=== PATIENT | male | born 1970 | race Caucasian/White ===

== ENCOUNTER 2016-10-17 01:41 | Emergency (ER) | payer BC ==
--- NOTE | 2016-10-17 01:44 | EDM.PDOC ---
ED HPI GENERAL MEDICAL PROBLEM - General Chief Complaint: Abdominal Pain Stated Complaint: ABDOMINAL PAIN Time Seen by Provider: 10/17/16 01:47 Source of Information: Reports: Patient History Limitations: Reports: No Limitations - History of Present Illness INITIAL COMMENTS - FREE TEXT/NARRATIVE: 46 years old w m in prev healthy condition came to the ed by PC due to acute onset of mid abdominal pain after he ate a hamburger at [facility]. No trauma, pt was severe ly nauseated, did not vomit. Puls was 45 BP was 124/67. no chest pain, no dizziness. pt was pale and diaphoretic on arrival, however. 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: Other (see below) (none) Bilateral Lower Abdominal Pain Score (Numeric/FACES): 8 - Related Data Allergies Allergy/AdvReac Type Severity Reaction Status Date / Time No Known Allergies Allergy Verified 10/17/16 01:51 Home Meds: Home Meds NK [No Known Home Meds] 10/17/16 [History] ED ROS GENERAL - Review of Systems Review Of Systems: See Below Constitutional: Reports: Diaphoresis HEENT: Reports: No Symptoms Respiratory: Reports: No Symptoms Cardiovascular: Reports: Lightheadedness Endocrine: Reports: No Symptoms GI/Abdominal: Reports: Abdominal Pain : Reports: No Symptoms Musculoskeletal: Reports: No Symptoms Skin: Reports: No Symptoms Neurological: Reports: No Symptoms Psychiatric: Reports: No Symptoms Hematologic/Lymphatic: Reports: No Symptoms Immunologic: Reports: No Symptoms ED EXAM, GI/ABD - Physical Exam Exam: See Below Exam Limited By: Other (severe abd. pain with nausea) General Appearance: Alert, WD/WN, Moderate Distress, Obese Eyes: Bilateral: Normal Appearance Ears: Normal External Exam Nose: Normal Inspection, Normal Mucosa Throat/Mouth: Normal Inspection, Normal Lips Head: Atraumatic, Normocephalic Neck: Normal Inspection, Supple, Non-Tender, Full Range of Motion Respiratory/Chest: No Respiratory Distress, Lungs Clear, Chest Non-Tender Cardiovascular: Bradycardia (rate 39) GI/Abdominal: Hypoactive Bowel Sounds, Tenderness, Guarding (Male) Exam: No Hernia, Normal Inspection Rectal (Males) Exam: Deferred Back Exam: Normal Inspection, Full Range of Motion Extremities: Normal Inspection, Normal Range of Motion, Non-Tender, No Pedal Edema Neurological: Alert, Oriented, CN II-XII Intact, Normal Cognition, Normal Gait Psychiatric: Normal Affect, Normal Mood Skin Exam: Warm, Dry, Intact, Pallor Lymphatic: No Adenopathy EKG INTERPRETATION EKG Date: 10/17/16 Time: 03:30 Rhythm: NSR Rate (beats/min): 34 [place]: normal P-wave: present QRS: normal ST-T: normal QT: normal Comparison: NA - no prior EKG EKG Interpretation Comments: Repeat ECH at 6.27 am showed Bradycardia with a rate of 49 bpm Course - Vital Signs Text/Narrative:: 46 years old w m in prev healthy condition came to the ed by PC due to acute onset of mid abdominal pain after he ate a hamburger at [facility]. No trauma, pt was severe ly nauseated, did not vomit. Puls was 45 BP was 124/67. no chest pain, no dizziness. pt was pale and diaphoretic on arrival, however. denied fatty food intake. Denied GBD. PE: Gen abdominal pain, more so epigastric, Bradycardia Imaging: Abd flat and upright Neg. CT abd. showed a nodule 4 mm right middle lobe of lung. Labs: CBC, BMP, Troponin and TSH were neg, Drug screen was pos for opiates, Urine was collected after he received Dilaudid, UA was neg Impression: possible gastritis, food related, Bradycardia. Tx: Dilaudid, Zofran, NS 1000, NTG patch, observed for 6 hours on manager cardiac Reexam: Bradycardia 49 BPM in am, not symptomatic, walks, talks, feels in his usual state of health. His arrived, last physical was 15 yeasr ago Consultation: Dr. Hernandez, Cariologist, [place]: Does not think it is heart related, would recommend Holter monitor set up, however. Plan: D/C with instructions Last Recorded V/S: Last Vital Signs Temp 36.5 C 10/17/16 01:47 Pulse 34 L 10/17/16 03:33 Resp 20 10/17/16 01:47 BP 119/67 10/17/16 03:33 Pulse Ox 100 10/17/16 01:47 - Orders/Labs/Meds Orders: Active Orders 24 hr Category Date Time Status EKG Documentation Completion [RC] ASDIRECTED Care 10/17/16 03:30 Active EKG Documentation Completion [RC] ASDIRECTED Care 10/17/16 04:05 Active Abdomen 2V AP Flat Upright [CR] Stat Exams 10/17/16 02:09 Taken Abdomen Pelvis w Cont [CT] Stat Exams 10/17/16 02:57 Taken Sodium Chloride 0.9% [Saline Flush] Med 10/17/16 02:03 Active 10 ml FLUSH ASDIRECTED PRN Saline Lock Insert [OM.PC] Routine Oth 10/17/16 02:03 Ordered EKG 12 Lead [EK] Routine Ther 10/17/16 03:30 Ordered EKG 12 Lead [EK] Routine Ther 10/17/16 06:30 Ordered Medication Orders Sodium Chloride (Saline Flush) 10 ml FLUSH ASDIRECTED PRN PRN Reason: Keep Vein Open Last Admin: 10/17/16 02:09 Dose: 10 ml Labs: Laboratory Tests 10/17/16 10/17/16 10/17/16 Range/Units 02:10 02:10 02:10 WBC 11.3 (4.5-12.0) X10-3/uL RBC 5.09 (4.30-5.75) x10(6)uL Hgb 13.9 (11.5-15.5) g/dL Hct 42.0 (30.0-51.3) % MCV 82.5 (80-96) fL MCH 27.3 L (27.7-33.6) pg MCHC 33.1 (32.2-35.4) g/dL RDW 12.9 (11.5-15.5) % Plt Count 275 (125-369) X10(3)uL MPV 8.7 (7.4-10.4) fL Neut % (Auto) 48.9 (46-82) % Lymph % (Auto) 37.3 H (13-37) % [place] % (Auto) 10.6 (4-12) % Eos % (Auto) 3 (1.0-5.0) % Baso % (Auto) 1 (0-2) % Neut # (Auto) 5.5 (1.6-8.3) # Lymph # (Auto) 4.2 (0.6-5.0) # [place] # (Auto) 1.2 (0.0-1.3) # Eos # (Auto) 0.3 (0.0-0.8) # Baso # (Auto) 0.1 (0.0-0.2) # PT 10.3 (8.7-11.1) INR 1.02 (0.89-1.13) Sodium 143 (135-145) mmol/L Potassium 3.7 (3.5-5.3) mmol/L Chloride 109 (100-110) mmol/L Carbon Dioxide 27 (23-29) mmol/L BUN 16 (5-20) mg/dL Creatinine 1.0 (0.6-1.3) mg/dL Est Cr Clr Drug Dosing 96.32 mL/min Estimated GFR (MDRD) > 60 (>60) BUN/Creatinine Ratio 16.0 (9-20) Glucose 136 H (80-116) mg/dL Calcium 9.4 (8.6-10.2) mg/dL Total Bilirubin 0.5 (0.1-1.3) mg/dL Direct Bilirubin 0.0 L (0.1-0.2) mg/dL AST 18 (5-27) IU/L ALT 19 (14-26) IU/L Alkaline Phosphatase 70 (56-112) IU/L Troponin I (0.02-0.06) NG/ML Total Protein 7.7 (6.0-8.0) g/dL Albumin 4.3 (3.5-5.2) g/dL Amylase 33 (28-100) U/L TSH, Ultra Sensitive (0.4-5.5) nlU/mL Urine Color (YELLOW) Urine Appearance (CLEAR) Urine pH (5.0-6.5) Ur Specific [place] (1.010-1.025) Urine Protein (NEGATIVE) mg/dL Urine Glucose (UA) (NEGATIVE) mg/dL Urine Ketones (NEGATIVE) mg/dL Urine Occult Blood (NEGATIVE) Urine Nitrite (NEGATIVE) Urine Bilirubin (NEGATIVE) Urine Urobilinogen (NEGATIVE) mg/dL Ur Leukocyte Esterase (NEGATIVE) Urine RBC (0) Urine WBC (0) Ur Squamous Epith Cells (NS,R,O) Urine Bacteria (NS) Urine Opiates Screen (NEGATIVE) Ur Oxycodone Screen (NEGATIVE) Ur Propoxyphene Screen (NEGATIVE) Ur Barbituates Screen (NEGATIVE) Ur Tricyclics Screen (NEGATIVE) Ur Phencyclidine Scrn (NEGATIVE) Ur Amphetamine Screen (NEGATIVE) Urine MDMA Screen (NEGATIVE) U Benzodiazepines Scrn (NEGATIVE) U Cocaine Metab Screen (NEGATIVE) U Marijuana (THC) Screen (NEGATIVE) 10/17/16 10/17/16 10/17/16 Range/Units 02:10 02:10 02:40 WBC (4.5-12.0) X10-3/uL RBC (4.30-5.75) x10(6)uL Hgb (11.5-15.5) g/dL Hct (30.0-51.3) % MCV (80-96) fL MCH (27.7-33.6) pg MCHC (32.2-35.4) g/dL RDW (11.5-15.5) % Plt Count (125-369) X10(3)uL MPV (7.4-10.4) fL Neut % (Auto) (46-82) % Lymph % (Auto) (13-37) % [place] % (Auto) (4-12) % Eos % (Auto) (1.0-5.0) % Baso % (Auto) (0-2) % Neut # (Auto) (1.6-8.3) # Lymph # (Auto) (0.6-5.0) # [place] # (Auto) (0.0-1.3) # Eos # (Auto) (0.0-0.8) # Baso # (Auto) (0.0-0.2) # PT (8.7-11.1) INR (0.89-1.13) Sodium (135-145) mmol/L Potassium (3.5-5.3) mmol/L Chloride (100-110) mmol/L Carbon Dioxide (23-29) mmol/L BUN (5-20) mg/dL Creatinine (0.6-1.3) mg/dL Est Cr Clr Drug Dosing mL/min Estimated GFR (MDRD) (>60) BUN/Creatinine Ratio (9-20) Glucose (80-116) mg/dL Calcium (8.6-10.2) mg/dL Total Bilirubin (0.1-1.3) mg/dL Direct Bilirubin (0.1-0.2) mg/dL AST (5-27) IU/L ALT (14-26) IU/L Alkaline Phosphatase (56-112) IU/L Troponin I < 0.01 L (0.02-0.06) NG/ML Total Protein (6.0-8.0) g/dL Albumin (3.5-5.2) g/dL Amylase (28-100) U/L TSH, Ultra Sensitive 4.30 (0.4-5.5) nlU/mL Urine Color Yellow (YELLOW) Urine Appearance Clear (CLEAR) Urine pH 5.0 (5.0-6.5) Ur Specific [place] 1.030 H (1.010-1.025) Urine Protein Negative (NEGATIVE) mg/dL Urine Glucose (UA) Normal (NEGATIVE) mg/dL Urine Ketones Negative (NEGATIVE) mg/dL Urine Occult Blood Negative (NEGATIVE) Urine Nitrite Negative (NEGATIVE) Urine Bilirubin Negative (NEGATIVE) Urine Urobilinogen 1 H (NEGATIVE) mg/dL Ur Leukocyte Esterase Negative (NEGATIVE) Urine RBC 0-5 (0) Urine WBC 0-5 (0) Ur Squamous Epith Cells Few H (NS,R,O) Urine Bacteria Rare H (NS) Urine Opiates Screen (NEGATIVE) Ur Oxycodone Screen (NEGATIVE) Ur Propoxyphene Screen (NEGATIVE) Ur Barbituates Screen (NEGATIVE) Ur Tricyclics Screen (NEGATIVE) Ur Phencyclidine Scrn (NEGATIVE) Ur Amphetamine Screen (NEGATIVE) Urine MDMA Screen (NEGATIVE) U Benzodiazepines Scrn (NEGATIVE) U Cocaine Metab Screen (NEGATIVE) U Marijuana (THC) Screen (NEGATIVE) 10/17/16 10/17/16 Range/Units 02:40 06:40 WBC (4.5-12.0) X10-3/uL RBC (4.30-5.75) x10(6)uL Hgb (11.5-15.5) g/dL Hct (30.0-51.3) % MCV (80-96) fL MCH (27.7-33.6) pg MCHC (32.2-35.4) g/dL RDW (11.5-15.5) % Plt Count (125-369) X10(3)uL MPV (7.4-10.4) fL Neut % (Auto) (46-82) % Lymph % (Auto) (13-37) % [place] % (Auto) (4-12) % Eos % (Auto) (1.0-5.0) % Baso % (Auto) (0-2) % Neut # (Auto) (1.6-8.3) # Lymph # (Auto) (0.6-5.0) # [place] # (Auto) (0.0-1.3) # Eos # (Auto) (0.0-0.8) # Baso # (Auto) (0.0-0.2) # PT (8.7-11.1) INR (0.89-1.13) Sodium (135-145) mmol/L Potassium (3.5-5.3) mmol/L Chloride (100-110) mmol/L Carbon Dioxide (23-29) mmol/L BUN (5-20) mg/dL Creatinine (0.6-1.3) mg/dL Est Cr Clr Drug Dosing mL/min Estimated GFR (MDRD) (>60) BUN/Creatinine Ratio (9-20) Glucose (80-116) mg/dL Calcium (8.6-10.2) mg/dL Total Bilirubin (0.1-1.3) mg/dL Direct Bilirubin (0.1-0.2) mg/dL AST (5-27) IU/L ALT (14-26) IU/L Alkaline Phosphatase (56-112) IU/L Troponin I < 0.01 L (0.02-0.06) NG/ML Total Protein (6.0-8.0) g/dL Albumin (3.5-5.2) g/dL Amylase (28-100) U/L TSH, Ultra Sensitive (0.4-5.5) nlU/mL Urine Color (YELLOW) Urine Appearance (CLEAR) Urine pH (5.0-6.5) Ur Specific [place] (1.010-1.025) Urine Protein (NEGATIVE) mg/dL Urine Glucose (UA) (NEGATIVE) mg/dL Urine Ketones (NEGATIVE) mg/dL Urine Occult Blood (NEGATIVE) Urine Nitrite (NEGATIVE) Urine Bilirubin (NEGATIVE) Urine Urobilinogen (NEGATIVE) mg/dL Ur Leukocyte Esterase (NEGATIVE) Urine RBC (0) Urine WBC (0) Ur Squamous Epith Cells (NS,R,O) Urine Bacteria (NS) Urine Opiates Screen Positive H (NEGATIVE) Ur Oxycodone Screen Negative (NEGATIVE) Ur Propoxyphene Screen Negative (NEGATIVE) Ur Barbituates Screen Negative (NEGATIVE) Ur Tricyclics Screen Negative (NEGATIVE) Ur Phencyclidine Scrn Negative (NEGATIVE) Ur Amphetamine Screen Negative (NEGATIVE) Urine MDMA Screen Negative (NEGATIVE) U Benzodiazepines Scrn Negative (NEGATIVE) U Cocaine Metab Screen Negative (NEGATIVE) U Marijuana (THC) Screen Negative (NEGATIVE) Meds: Medications Generic Name Dose Route Start Last Admin Trade Name Freq PRN Reason Stop Dose Admin Sodium Chloride 10 ml 10/17/16 02:03 10/17/16 02:09 Saline Flush FLUSH 10 ml ASDIRECTED PRN Administration Keep Vein Open Discontinued Medications Generic Name Dose Route Start Last Admin Trade Name Freq PRN Reason Stop Dose Admin Hydromorphone HCl 1 mg 10/17/16 02:19 10/17/16 02:22 Dilaudid IVPUSH 10/17/16 02:20 1 mg ONETIME STA Administration Sodium Chloride 500 mls @ 999 mls/hr 10/17/16 02:01 10/17/16 02:14 Normal Saline IV 10/17/16 02:31 999 mls/hr .BOLUS ONE Administration Iopamidol 100 ml 10/17/16 02:59 10/17/16 03:07 Isovue-370 (76%) IV 10/17/16 03:00 100 ml . DIRECTED ONE Administration Nitroglycerin 1 gm 10/17/16 03:32 10/17/16 03:39 Nitro-Bid 2% TOP 10/17/16 03:33 1 gm ONETIME ONE Administration Ondansetron HCl 8 mg 10/17/16 02:02 10/17/16 02:17 Zofran IVPUSH 10/17/16 02:03 8 mg ONETIME ONE Administration Pantoprazole Sodium 40 mg 10/17/16 03:34 10/17/16 03:48 Protonix Iv IVPUSH 10/17/16 03:35 40 mg ONETIME ONE Administration Departure - Departure Time of Disposition: 07:59 Disposition: Home, Self-Care 01 Condition: good Clinical Impression: Bradycardia with 41-50 beats per minute, Incidental lung nodule, > 3mm and < 8mm Gastritis Qualifiers: Gastritis type: unspecified gastritis Chronicity: acute Gastritis bleeding: without bleeding Qualified Code(s): K29.00 - Acute gastritis without bleeding - Discharge Information Referrals: PCP,None [Primary Care Provider] - Forms: ED Department Discharge Additional Instructions: please f/u with your PMD, please come back if your symptoms get worse acutely. - My Orders Last 24 Hours: My Active Orders 10/17/16 02:03 Sodium Chloride 0.9% [Saline Flush] 10 ml FLUSH ASDIRECTED PRN Saline Lock Insert [OM.PC] Routine 10/17/16 02:09 Abdomen 2V AP Flat Upright [CR] Stat 10/17/16 02:57 Abdomen Pelvis w Cont [CT] Stat 10/17/16 03:30 EKG Documentation Completion [RC] ASDIRECTED EKG 12 Lead [EK] Routine 10/17/16 04:05 EKG Documentation Completion [RC] ASDIRECTED 10/17/16 06:30 EKG 12 Lead [EK] Routine - Assessment/Plan Last 24 Hours: My Active Orders 10/17/16 02:03 Sodium Chloride 0.9% [Saline Flush] 10 ml FLUSH ASDIRECTED PRN Saline Lock Insert [OM.PC] Routine 10/17/16 02:09 Abdomen 2V AP Flat Upright [CR] Stat 10/17/16 02:57 Abdomen Pelvis w Cont [CT] Stat 10/17/16 03:30 EKG Documentation Completion [RC] ASDIRECTED EKG 12 Lead [EK] Routine 10/17/16 04:05 EKG Documentation Completion [RC] ASDIRECTED 10/17/16 06:30 EKG 12 Lead [EK] Routine
[2016-10-17] MEDS ORDERED: Sodium Chloride 0.9% 500 ML IV ONE (02:01)
[2016-10-17] MEDS ORDERED: Ondansetron 4 MG/2 ML SDV IVPUSH ONE (02:02)
[2016-10-17] MEDS ORDERED: Sodium Chloride 0.9% 10 ML Syringe FLUSH PRN (02:03)
[2016-10-17] MEDS ORDERED: HYDROmorphone 2 MG/ML SDV IVPUSH STA (02:19)
[2016-10-17] MEDS ORDERED: Iopamidol 755 Mg/ML 100 ML Bottle IV ONE (02:59)
[2016-10-17] MEDS ORDERED: Nitroglycerin 2% Oint 1 GM UD Packet TOP ONE (03:32)
[2016-10-17 03:34] VITALS: BP 119/67
[2016-10-17] MEDS ORDERED: Pantoprazole 40 MG Vial IVPUSH ONE (03:34)
== END 2016-10-17 08:10 | disposition home or self-care (01) ==
LOC: FB.ED 01:41
DX: R00.1 Bradycardia, unspecified (principal); R91.1 Solitary pulmonary nodule; E66.9 Obesity, unspecified; F11.90 Opioid use, unspecified, uncomplicated; J98.11 Atelectasis; K42.9 Umbilical hernia without obstruction or gangrene
CPT/HCPCS: 36415; 74020; 74177; 80048; 80076; 80305; 81001; 82150; 84443; 84484; 85025; 85610; 93005; 96361; 96374; 96375; 99284; A9270; C9113; J1170; J2405; J7040; J7050; Q9967

== ENCOUNTER 2017-04-09 00:29 | Emergency (ER) | payer BC ==
[2017-04-09] MEDS ORDERED: Alum Hydroxide/Mag Hydroxide 15 ML, Lidocaine 2% 15 ML PO ONE ×2 (00:45)
--- NOTE | 2017-04-09 00:55 | EDM.PDOC ---
ED HPI GENERAL MEDICAL PROBLEM - General Chief Complaint: Abdominal Pain Stated Complaint: ABD PAIN Time Seen by Provider: 04/09/17 00:40 Source of Information: Reports: Patient, Old Records History Limitations: Reports: No Limitations - History of Present Illness INITIAL COMMENTS - FREE TEXT/NARRATIVE: 46 yo male here with epigastric pain that began about 4 hrs ago. Has had some vomiting with the pain. No black or bloody stool or hematemesis. Took ibuprofen this morning for muscle soreness before the onset of the pain. Does not drink ETOH or smoke. Took a Prilosec a couple hrs before arrival. Onset: Today Onset Date: 04/08/17 Onset Time: 20:30 Duration: Hour(s):, Getting Worse Location: Reports: Abdomen Quality: Reports: Burning Severity: Severe Improves with: Reports: None Worsens with: Reports: Other (time) Context: Reports: Other (Hx of gastritis) Associated Symptoms: Reports: Loss of Appetite, Nausea/Vomiting. Denies: Fever/ Chills Treatments SALT MANAGER: Reports: Other (see below) (Prilosec) mid epigastric Pain Score (Numeric/FACES): 10 - Related Data Allergies Allergy/AdvReac Type Severity Reaction Status Date / Time No Known Allergies Allergy Verified 04/09/17 00:38 Home Meds: Home Meds NK [No Known Home Meds] 10/17/16 [History] Past Medical History - Past Health History Medical/Surgical History: Denies Medical/Surgical History Social & Family History - Caffeine Use Caffeine Use: Reports: None - Recreational Drug Use Recreational Drug Use: No ED ROS GENERAL - Review of Systems Review Of Systems: See Below Constitutional: Reports: Decreased Appetite HEENT: Reports: No Symptoms Respiratory: Reports: No Symptoms Cardiovascular: Reports: No Symptoms GI/Abdominal: Reports: Abdominal Pain, Decreased Appetite, Nausea, Vomiting. Denies: Black Stool, Bloody Stool, Constipation, Diarrhea, Distension, Flatus, Hematemesis, Hematochezia, Melena : Reports: No Symptoms Musculoskeletal: Reports: No Symptoms Skin: Reports: No Symptoms Neurological: Reports: No Symptoms Psychiatric: Reports: No Symptoms ED EXAM, GI/ABD - Physical Exam Exam: See Below Exam Limited By: No Limitations General Appearance: Alert, WD/WN, Mild Distress Eyes: Bilateral: Normal Appearance Ears: Normal External Exam, Normal Canal, Hearing Grossly Normal Nose: Normal Inspection, Normal Mucosa, No Blood Throat/Mouth: Normal Inspection, Normal Lips, Normal Teeth, Normal Oropharynx, Normal Voice, No Airway Compromise Head: Atraumatic, Normocephalic Neck: Normal Inspection Respiratory/Chest: No Respiratory Distress, Lungs Clear, Normal Breath Sounds, No Accessory Muscle Use Cardiovascular: Regular Rate, Rhythm, No Edema, Bradycardia GI/Abdominal Exam: Normal Bowel Sounds, Soft, No Distention, Tender (epigastrium ) Back Exam: Normal Inspection. No: CVA Tenderness (R), CVA Tenderness (L) Extremities: Normal Inspection, Normal Range of Motion, Non-Tender, No Pedal Edema Neurological: Alert, Oriented, CN II-XII Intact, Normal Cognition, No Motor/ Sensory Deficits Psychiatric: Normal Affect, Normal Mood Skin Exam: Warm, Dry, Intact, Normal Color, No Rash Lymphatic: No Adenopathy Course - Vital Signs Last Recorded V/S: Last Vital Signs Temp 36.4 C 04/09/17 00:29 Pulse 44 L 04/09/17 00:29 Resp 18 04/09/17 00:29 BP 141/82 H 04/09/17 00:29 Pulse Ox 100 04/09/17 00:29 - Orders/Labs/Meds Orders: Active Orders 24 hr Category Date Time Status HELICOBACTER PYLORI AG, STOOL [REF] Stat Lab 04/09/17 01:03 Ordered Lactated Ringers [Ringers, Lactated] 1,000 ml Med 04/09/17 02:15 Active IV ASDIRECTED Medication Orders Lactated Ringer's (Ringers, Lactated) 1,000 mls @ 250 mls/hr IV ASDIRECTED DICK Last Admin: 04/09/17 02:21 Dose: 250 mls/hr Labs: Laboratory Tests 04/09/17 04/09/17 Range/Units 01:11 01:11 WBC 15.5 H (4.5-12.0) X10-3/uL RBC 5.02 (4.30-5.75) x10(6)uL Hgb 13.8 (11.5-15.5) g/dL Hct 40.8 (30.0-51.3) % MCV 81.3 (80-96) fL MCH 27.5 L (27.7-33.6) pg MCHC 33.8 (32.2-35.4) g/dL RDW 12.3 (11.5-15.5) % Plt Count 238 (125-369) X10(3)uL Sodium 138 (135-145) mmol/L Potassium 3.8 (3.5-5.3) mmol/L Chloride 100 D (100-110) mmol/L Carbon Dioxide 24 (23-29) mmol/L BUN 24 H (5-20) mg/dL Creatinine 1.5 H (0.6-1.3) mg/dL Est Cr Clr Drug Dosing 64.21 mL/min Estimated GFR (MDRD) 51 L (>60) BUN/Creatinine Ratio 16.0 (9-20) Glucose 150 H (80-116) mg/dL Calcium 8.9 (8.6-10.2) mg/dL Total Bilirubin 0.7 (0.1-1.3) mg/dL AST 18 (5-27) IU/L ALT 21 D (14-26) IU/L Alkaline Phosphatase 65 (56-112) IU/L Total Protein 7.5 (6.0-8.0) g/dL Albumin 4.4 (3.5-5.2) g/dL Globulin 3.1 g/dL Albumin/Globulin Ratio 1.4 Amylase 34 (28-100) U/L Meds: Medications Generic Name Dose Route Start Last Admin Trade Name Freq PRN Reason Stop Dose Admin Lactated Ringer's 1,000 mls @ 250 mls/hr 04/09/17 02:15 04/09/17 02:21 Ringers, Lactated IV 250 mls/hr ASDIRECTED DICK Administration Discontinued Medications Generic Name Dose Route Start Last Admin Trade Name Freq PRN Reason Stop Dose Admin Al Hydroxide/Mg Hydroxide 15 0 ml 04/09/17 00:45 04/09/17 00:49 ml/ Lidocaine HCl 15 ml PO 04/09/17 00:46 15 ml ONETIME ONE Administration Famotidine 20 mg 04/09/17 00:57 04/09/17 01:36 Pepcid IVPUSH 04/09/17 00:58 Not Given ONETIME ONE Hydromorphone HCl 1 mg 04/09/17 01:01 04/09/17 01:16 Dilaudid IVPUSH 04/09/17 01:02 1 mg ONETIME ONE Administration Lactated Ringer's 1,000 mls @ 1,000 mls/hr 04/09/17 00:57 04/09/17 01:13 Ringers, Lactated IV 04/09/17 01:56 1,000 mls/hr BOLUS ONE Administration Famotidine Confirm 04/09/17 01:26 04/09/17 01:31 Famotidine In Ns Premix Administered 04/09/17 01:27 Not Given Dose 20 mg in 50 mls @ as directed .ROUTE .STK-MED ONE Famotidine 20 mg/ Premix 50 mls @ 200 mls/hr 04/09/17 01:29 04/09/17 01:36 IV 04/09/17 01:30 200 mls/hr ONETIME ONE Administration Departure - Departure Time of Disposition: 03:11 Disposition: Home, Self-Care 01 Condition: Good Clinical Impression: Gastritis Qualifiers: Gastritis type: unspecified gastritis Chronicity: acute Gastritis bleeding: without bleeding Qualified Code(s): K29.00 - Acute gastritis without bleeding - Discharge Information Forms: ED Department Discharge - My Orders Last 24 Hours: My Active Orders 04/09/17 01:03 HELICOBACTER PYLORI AG, STOOL [REF] Stat 04/09/17 02:15 Lactated Ringers [Ringers, Lactated] 1,000 ml IV ASDIRECTED - Assessment/Plan Last 24 Hours: My Active Orders 04/09/17 01:03 HELICOBACTER PYLORI AG, STOOL [REF] Stat 04/09/17 02:15 Lactated Ringers [Ringers, Lactated] 1,000 ml IV ASDIRECTED
[2017-04-09] MEDS ORDERED: Lactated Ringers 1,000 ML IV ONE (00:57)
[2017-04-09] MEDS ORDERED: Famotidine 20 MG/2 ML SDV IVPUSH ONE (00:57)
[2017-04-09] MEDS ORDERED: HYDROmorphone 2 MG/ML SDV IVPUSH ONE (01:01)
[2017-04-09] MEDS ORDERED: Famotidine/Normal Saline 20 MG/50 ML BAG ONE (01:26)
[2017-04-09] MEDS ORDERED: Famotidine/Normal Saline 20 MG in Premix Bag 1 BAG IV ONE (01:29)
[2017-04-09] MEDS ORDERED: Lactated Ringers 1,000 ML IV SCH (02:15)
[2017-04-09 03:46] VITALS: BP 126/68
== END 2017-04-09 03:40 | disposition home or self-care (01) ==
LOC: FB.ED 00:29
DX: K29.00 Acute gastritis without bleeding (principal)
CPT/HCPCS: 36415; 80053; 82150; 82272; 85027; 87338; 96361; 96374; 96375; 99284; A9270; J1170; J7120

== ENCOUNTER 2017-05-15 11:18 | Emergency (ER) | payer BC ==
[2017-05-15] MEDS ORDERED: Alum Hydroxide/Mag Hydroxide 30 ML, Lidocaine 2% 15 ML PO ONE ×2 (11:50)
[2017-05-15] MEDS: Alum Hydroxide/Mag Hydroxide 30 ML, Lidocaine 2% 30 ML PO ONE ×2 (11:50)
--- NOTE | 2017-05-15 11:51 | EDM.PDOC ---
ED HPI GENERAL MEDICAL PROBLEM - General Chief Complaint: Abdominal Pain Stated Complaint: PAIN Time Seen by Provider: 05/15/17 11:18 Source of Information: Reports: Patient History Limitations: Reports: No Limitations - History of Present Illness INITIAL COMMENTS - FREE TEXT/NARRATIVE: c/o epigastric pain x 1h nothing to eat for bfast, drank some water, no coffee, had a chest CT done here at 9:15 AM to f/u a pul nodule had severe cramping epigastric pain x 1h at work, called ED regarding bringing him in, then pain was gone and pt decided to stay at work I called pt back and requested him to come to ED after additional discussions with Dr Kraus and PCP Dr Alejandro pt had a 4.5 mm nodule in R lung field that was unchanged in past 6m, CT image today had a slice right through the nodule which showed inc'd density and was c/ w granuloma, Dr Kraus also incidentally reported heavy calcification of the LAD I called pt at work and he reported he has had severe epigastric (no CP) pain intermittently for the past 9m, he was feeling fine when we spoke, he says that it occurs when he is under stress he was in ED 1m ago and dx with gastritis, f/u scheduled with Dr Moreno 1w ago who said it was none surgical labs 1m ago showed inc'd glucose, inc'd WBC 15k, neg troponin, EKG was not done. He also had inc'd BUN/creat c/w dehydration. EKG 7m ago showed slight increase in J-point in V2 (1 mm) that now is a better ( 0.5 mm) pt is tender in epigastrium never smoked, no prior CV hx Upper Abdominal Pain Score (Numeric/FACES): 4 - Related Data Allergies Allergy/AdvReac Type Severity Reaction Status Date / Time No Known Allergies Allergy Verified 05/15/17 11:40 Home Meds: Home Meds Famotidine 40 mg PO DAILY #30 tablet 04/09/17 [Rx] Diltiazem HCl [Diltiazem ER] 120 mg PO DAILY #7 capsule.er 05/15/17 [Rx] Nitroglycerin 0.4 mg SL ASDIRECTED PRN #20 tab.subl 05/15/17 [Rx] Past Medical History - Past Health History Medical/Surgical History: Denies Medical/Surgical History Social & Family History - Family History Family Medical History: Unobtainable - Tobacco Use Smoking Status *Q: Never Smoker Second Hand Smoke Exposure: Yes - Caffeine Use Caffeine Use: Reports: None - Recreational Drug Use Recreational Drug Use: No ED ROS GENERAL - Review of Systems Review Of Systems: See Below Constitutional: Reports: No Symptoms HEENT: Reports: No Symptoms Respiratory: Reports: No Symptoms Cardiovascular: Reports: No Symptoms Endocrine: Reports: No Symptoms GI/Abdominal: Reports: Abdominal Pain : Reports: No Symptoms Musculoskeletal: Reports: No Symptoms Skin: Reports: No Symptoms Neurological: Reports: No Symptoms Psychiatric: Reports: No Symptoms Hematologic/Lymphatic: Reports: No Symptoms Immunologic: Reports: No Symptoms ED EXAM, GI/ABD - Physical Exam Exam: See Below Exam Limited By: No Limitations General Appearance: Alert, WD/WN, No Apparent Distress Ears: Normal External Exam, Normal Canal, Hearing Grossly Normal, Normal TMs Nose: Normal Inspection, Normal Mucosa, No Blood Throat/Mouth: Normal Inspection, Normal Lips, Normal Teeth, Normal Gums, Normal Oropharynx, Normal Voice, No Airway Compromise Head: Atraumatic, Normocephalic Neck: Normal Inspection, Supple, Non-Tender, Full Range of Motion Respiratory/Chest: No Respiratory Distress, Lungs Clear, Normal Breath Sounds, No Accessory Muscle Use, Chest Non-Tender Cardiovascular: Regular Rate, Rhythm, No Edema, No Gallop, No Murmur, No Rub GI/Abdominal Exam: Normal Bowel Sounds, Soft, No Organomegaly, No Distention, Other (1+ tender localized epigastrium, chest wall NT) Back Exam: Normal Inspection, Full Range of Motion, NT Extremities: Normal Inspection, Normal Range of Motion, Non-Tender, No Pedal Edema Neurological: Alert, Oriented, CN II-XII Intact, Normal Cognition, No Motor/ Sensory Deficits Psychiatric: Normal Affect, Normal Mood Skin Exam: Warm, Dry, Intact, Normal Color, No Rash Lymphatic: No Adenopathy Course - Vital Signs Last Recorded V/S: Last Vital Signs Temp 36.6 C 05/15/17 11:27 Pulse 58 L 05/15/17 11:27 Resp 16 05/15/17 11:27 BP 144/93 H 05/15/17 12:10 Pulse Ox 100 05/15/17 11:27 - Orders/Labs/Meds Orders: Active Orders 24 hr Category Date Time Status EKG 12 Lead [EK] Routine Ther 05/15/17 11:20 Ordered EKG 12 Lead [EK] Routine Ther 05/15/17 14:45 Ordered Labs: Laboratory Tests 05/15/17 05/15/17 05/15/17 Range/Units 11:40 11:40 11:40 WBC 13.4 H (4.5-12.0) X10-3/uL RBC 5.17 (4.30-5.75) x10(6)uL Hgb 14.1 (11.5-15.5) g/dL Hct 42.1 (30.0-51.3) % MCV 81.4 (80-96) fL MCH 27.2 L (27.7-33.6) pg MCHC 33.4 (32.2-35.4) g/dL RDW 12.6 (11.5-15.5) % Plt Count 224 (125-369) X10(3)uL MPV 9.1 (7.4-10.4) fL Neut % (Auto) 77.8 (46-82) % Lymph % (Auto) 14.6 (13-37) % [place] % (Auto) 6.3 (4-12) % Eos % (Auto) 1 (1.0-5.0) % Baso % (Auto) 1 (0-2) % Neut # (Auto) 10.4 H (1.6-8.3) # Lymph # (Auto) 2.0 (0.6-5.0) # [place] # (Auto) 0.8 (0.0-1.3) # Eos # (Auto) 0.1 (0.0-0.8) # Baso # (Auto) 0.1 (0.0-0.2) # Sodium 141 (135-145) mmol/L Potassium 4.1 (3.5-5.3) mmol/L Chloride 105 (100-110) mmol/L Carbon Dioxide 27 (21-32) mmol/L BUN 15 (7-18) mg/dL Creatinine 1.0 (0.70-1.30) mg/dL Est Cr Clr Drug Dosing 96.32 mL/min Estimated GFR (MDRD) > 60 (>60) BUN/Creatinine Ratio 15.0 (9-20) Glucose 94 (80-116) mg/dL Calcium 9.2 (8.6-10.2) mg/dL Troponin I < 0.017 L (<0.017-0.056) ng/mL C-Reactive Protein (0.5-0.9) mg/dL 05/15/17 05/15/17 Range/Units 11:40 13:55 WBC (4.5-12.0) X10-3/uL RBC (4.30-5.75) x10(6)uL Hgb (11.5-15.5) g/dL Hct (30.0-51.3) % MCV (80-96) fL MCH (27.7-33.6) pg MCHC (32.2-35.4) g/dL RDW (11.5-15.5) % Plt Count (125-369) X10(3)uL MPV (7.4-10.4) fL Neut % (Auto) (46-82) % Lymph % (Auto) (13-37) % [place] % (Auto) (4-12) % Eos % (Auto) (1.0-5.0) % Baso % (Auto) (0-2) % Neut # (Auto) (1.6-8.3) # Lymph # (Auto) (0.6-5.0) # [place] # (Auto) (0.0-1.3) # Eos # (Auto) (0.0-0.8) # Baso # (Auto) (0.0-0.2) # Sodium (135-145) mmol/L Potassium (3.5-5.3) mmol/L Chloride (100-110) mmol/L Carbon Dioxide (21-32) mmol/L BUN (7-18) mg/dL Creatinine (0.70-1.30) mg/dL Est Cr Clr Drug Dosing mL/min Estimated GFR (MDRD) (>60) BUN/Creatinine Ratio (9-20) Glucose (80-116) mg/dL Calcium (8.6-10.2) mg/dL Troponin I < 0.017 L (<0.017-0.056) ng/mL C-Reactive Protein 0.9 (0.5-0.9) mg/dL Meds: Medications Discontinued Medications Generic Name Dose Route Start Last Admin Trade Name Freq PRN Reason Stop Dose Admin Aspirin 324 mg 05/15/17 13:26 05/15/17 13:30 Aspirin PO 05/15/17 13:27 324 mg ONETIME ONE Administration Al Hydroxide/Mg Hydroxide 30 0 ml 05/15/17 11:26 05/15/17 11:50 ml/ Lidocaine HCl 30 ml PO 05/15/17 11:27 60 ml ONETIME ONE Administration Nitroglycerin 0.4 mg 05/15/17 12:06 05/15/17 12:10 Nitrostat SL 05/15/17 12:07 0.4 mg ONETIME ONE Administration Ondansetron HCl 4 mg 05/15/17 13:28 05/15/17 13:35 Zofran Odt PO 05/15/17 13:29 4 mg ONETIME ONE Administration - Re-Assessments/Exams Free Text/Narrative Re-Assessment/Exam: 05/15/17 13:24 no change in epigastric pain with GI cocktail, did have complete resolution from 2/10 to 0/10 after SL NTG x 1 d/w PCP Dr Alejandro who requested a stress-echo as soon as possible inc'd WBC concerning for adrenergic surge, altho gluocose is not elevated today (as it was 7m ago with similar symptoms) will repeat troponin at 2h and plan on d/c on ASA, diltiazem and NTG SL prn Free Text/Narrative Re-Assessment/Exam: 05/15/17 15:00 repeat troponin was neg, pt did have inc'd pain up to 6/10, a 2nd NTG SL did not help, EKG with pain 6/10 at 14:50 was SR 53 and unchanged with no ST changes pain appears to be GI (pt only reluctantly ate toast at 2 PM, his only food today) altho stress-echo indicated given his severe LAD calcification on CT no alcohol in 5y stress-echo scheduled in 1w in [place] plan d/w pt and Departure - Departure Time of Disposition: 15:15 Disposition: Home, Self-Care 01 Clinical Impression: CAD (coronary artery disease), [place] coronary artery, Abnormal EKG, Epigastric pain - Discharge Information Prescriptions: Diltiazem HCl [Diltiazem ER] 120 mg PO DAILY #7 capsule.er Nitroglycerin 0.4 mg SL ASDIRECTED PRN #20 tab.subl PRN Reason: Pain Instructions: Gastroesophageal Reflux Disease, Adult, Angina Pectoris Referrals: Giovanni Alejandro MD [Primary Care Provider] - Forms: ED Department Discharge Additional Instructions: To increase blood flow to the heart, take diltiazem ER 240 mg 1 tab daily for 7 days. To improve circulation, take baby aspirin 81 mg 1 tab daily. For severe abdomen or chest pain, take nitroglycerin 0.4 mg 1 tab under the tongue which you can repeat in 5 minutes if needed. Continue Pepcid 40 mg 1 tab daily. Eat 3 meals a day. Do not skip meals. Drink at least 2 liters of fluids daily without caffeine, 3 liters if working in a warmer environment. Go to [place] at 1 PM on May 22 for stress echo at [facility]. Return to ED if you feel worse. Call your Physician or Return to Emergency Department if: * Your condition worsens in any way. * You develop fever greater than 100.4. * You have vomitting that does not stop with medications. * You have pain that is not controlled with medications. - My Orders Last 24 Hours: My Active Orders 05/15/17 11:20 EKG 12 Lead [EK] Routine 05/15/17 14:45 EKG 12 Lead [EK] Routine - Assessment/Plan Last 24 Hours: My Active Orders 05/15/17 11:20 EKG 12 Lead [EK] Routine 05/15/17 14:45 EKG 12 Lead [EK] Routine
[2017-05-15] MEDS: Nitroglycerin 0.4 MG Tab.SL SL ONE ×2 (12:10→14:35)
[2017-05-15] MEDS ORDERED: Aspirin 81 MG Tab.Chew PO ONE (13:26)
[2017-05-15] MEDS ORDERED: Ondansetron 4 MG Tab.DIS PO ONE (13:28)
[2017-05-15 16:41] VITALS: BP 128/71
[2017-05-16] MEDS: Alum Hydroxide/Mag Hydroxide 30 ML, Lidocaine 2% 30 ML PO ONE ×2 (10:55)
== END 2017-05-15 15:26 | disposition home or self-care (01) ==
LOC: FB.ED 11:18
DX: I25.10 Atherosclerotic heart disease of native coronary artery without angina pectoris (principal); R94.31 Abnormal electrocardiogram [ECG] [EKG]; Z79.899 Other long term (current) drug therapy; Z77.22 Contact with and (suspected) exposure to environmental tobacco smoke (acute) (chronic); R91.1 Solitary pulmonary nodule
CPT/HCPCS: 36415; 71250; 80048; 84484; 85025; 86140; 93005; 99284; A9270

== ENCOUNTER 2019-11-25 23:39 | Emergency (ER) | payer BC ==
[2019-11-25] MEDS ORDERED: Acetaminophen/HYDROcodone 325-5 MG Tab PO ONE (23:40)
[2019-11-26] MEDS ORDERED: Alum Hydroxide/Mag Hydroxide 15 ML, Lidocaine 2% 15 ML PO ONE ×4 (00:06→00:29)
--- NOTE | 2019-11-26 00:25 | EDM.PDOC ---
ED HPI GENERAL MEDICAL PROBLEM - General Chief Complaint: Abdominal Pain Stated Complaint: ABDOMINAL PAIN Time Seen by Provider: 11/25/19 23:55 Source of Information: Reports: Patient History Limitations: Reports: No Limitations - History of Present Illness INITIAL COMMENTS - FREE TEXT/NARRATIVE: Patient presented to the ED because epigastric pain, 11/10. there is no associated N/V/D. There is no fever, chills, cough or cold symptoms. He is previosly on famotidine for GERD. Epigastric Pain Score (Numeric/FACES): 5 - Related Data Allergies Allergy/AdvReac Type Severity Reaction Status Date / Time No Known Allergies Allergy Verified 11/25/19 23:44 Home Meds: Home Meds Acetaminophen/HYDROcodone [Zahl 325-5 MG] 1 tab PO Q4H PRN #10 tab 11/26/19 [Rx] Past Medical History - Past Health History Medical/Surgical History: Denies Medical/Surgical History Cardiovascular History: Reports: Angina, High Cholesterol Respiratory History: Reports: Other (See Below) Other Respiratory History: Pt has nodule on his right side of his lung. Pt had to CT to investigate. Musculoskeletal History: Reports: Gout Neurological History: Reports: Migraines Other Neuro History: When he was a child, pt denies for last 30 years. Psychiatric History: Reports: ADHD, Anxiety, Depression Endocrine/Metabolic History: Reports: Obesity/BMI 30+ - Infectious Disease History Infectious Disease History: Reports: Chicken Pox - Past Surgical History HEENT Surgical History: Reports: Adenoidectomy, Tonsillectomy Respiratory Surgical History: Reports: None Social & Family History - Family History Family Medical History: Unobtainable Oncologic: Reports: Skin, Other (See Below) Other Oncologic Family History: Pt father 8 months ago with skin cancer. Pt states that his mother had a double masectomy 2 years ago. - Tobacco Use Smoking Status *Q: Never Smoker - Caffeine Use Caffeine Use: Reports: None - Recreational Drug Use Recreational Drug Use: Yes ED ROS GENERAL - Review of Systems Review Of Systems: See Below Constitutional: Reports: No Symptoms HEENT: Reports: No Symptoms Respiratory: Reports: No Symptoms Cardiovascular: Reports: No Symptoms Endocrine: Reports: No Symptoms GI/Abdominal: Reports: Abdominal Pain : Reports: No Symptoms Musculoskeletal: Reports: No Symptoms Skin: Reports: No Symptoms Neurological: Reports: No Symptoms Psychiatric: Reports: No Symptoms ED EXAM, GI/ABD - Physical Exam Exam: See Below Exam Limited By: No Limitations General Appearance: Alert, No Apparent Distress Ears: Normal External Exam, Normal Canal Nose: Normal Inspection, Normal Mucosa Throat/Mouth: Normal Inspection, Normal Lips Head: Atraumatic, Normocephalic Neck: Normal Inspection, Supple, Non-Tender, Full Range of Motion Respiratory/Chest: No Respiratory Distress, Lungs Clear, Normal Breath Sounds Cardiovascular: Normal Peripheral Pulses, Regular Rate, Rhythm, No Edema, No Gallop GI/Abdominal Exam: Normal Bowel Sounds, Soft, No Organomegaly, Other (epigastric T and RUQ T) Back Exam: Normal Inspection, Full Range of Motion Extremities: Normal Inspection, Normal Range of Motion, Non-Tender Course - Vital Signs Text/Narrative:: EKG-NSR GI cocktail x 2 Patient will be scheduled for an abdominal US to see if he has a GB stone or any BD dilatation Labs/Abd-pelvic CT was discussed with patient and verbalized full understanding NS 1 L bolus Zofran 4 mg IV x1 Morphine 4 mg IV x1 Last Recorded V/S: Last Vital Signs Temp 36.9 C 11/25/19 23:40 Pulse 69 11/25/19 23:40 Resp 18 11/25/19 23:40 BP 113/78 11/25/19 23:40 Pulse Ox 99 11/25/19 23:40 - Orders/Labs/Meds Orders: Active Orders 24 hr Category Date Time Status Abdomen Pelvis w Cont [CT] Stat Exams 11/26/19 01:08 Taken Sodium Chloride 0.9% [Normal Saline] 1,000 ml Med 11/26/19 01:15 Active IV ASDIRECTED Sodium Chloride 0.9% [Saline Flush] Med 11/26/19 01:08 Active 10 ml FLUSH ASDIRECTED PRN Saline Lock Insert [OM.PC] Routine Oth 11/26/19 01:08 Ordered Medication Orders Sodium Chloride (Normal Saline) 1,000 mls @ 999 mls/hr IV ASDIRECTED [facility] Last Admin: 11/26/19 01:19 Dose: 999 mls/hr Documented by: TITI Sodium Chloride (Saline Flush) 10 ml FLUSH ASDIRECTED PRN PRN Reason: Keep Vein Open Labs: Laboratory Tests 11/26/19 11/26/19 11/26/19 Range/Units 00:01 00:01 00:01 WBC 10.0 (4.5-12.0) X10-3/uL RBC 5.07 (4.30-5.75) x10(6)uL Hgb 13.6 (13.5-17.8) g/dL Hct 42.7 (30.0-51.3) % MCV 84.2 (80-96) fL MCH 26.9 L (27.7-33.6) pg MCHC 31.9 L (32.2-35.4) g/dL RDW 13.4 (11.5-15.5) % Plt Count 252 (125-369) X10(3)uL MPV 9.7 (7.4-10.4) fL Neut % (Auto) 64.1 (46-82) % Lymph % (Auto) 24.0 (13-37) % [place] % (Auto) 9.9 (4-12) % Eos % (Auto) 2 (1.0-5.0) % Baso % (Auto) 1 (0-2) % Neut # (Auto) 6.5 (1.6-8.3) # Lymph # (Auto) 2.4 (0.6-5.0) # [place] # (Auto) 1.0 (0.0-1.3) # Eos # (Auto) 0.1 (0.0-0.8) # Baso # (Auto) 0.0 (0.0-0.2) # Sodium 142 (135-145) mmol/L Potassium 3.5 (3.5-5.3) mmol/L Chloride 104 (100-110) mmol/L Carbon Dioxide 30 (21-32) mmol/L BUN 13 (7-18) mg/dL Creatinine 1.2 (0.70-1.30) mg/dL Est Cr Clr Drug Dosing 77.73 mL/min Estimated GFR (MDRD) > 60 (>60) BUN/Creatinine Ratio 10.8 (9-20) Glucose 115 (80-116) mg/dL Calcium 9.2 (8.6-10.2) mg/dL Total Bilirubin 1.0 (0.1-1.3) mg/dL AST 248 H* (5-25) IU/L ALT 461 H* (12-36) U/L Alkaline Phosphatase 249 H (56-112) IU/L Total Protein 7.6 (6.0-8.0) g/dL Albumin 4.0 (3.5-5.2) g/dL Globulin 3.6 g/dL Albumin/Globulin Ratio 1.1 Amylase 826 H* (25-115) U/L Lipase > 1500 H (73-393) U/L Meds: Medications Generic Name Dose Route Start Last Admin Trade Name Frerosanne PRN Reason Stop Dose Admin Sodium Chloride 1,000 mls @ 999 mls/hr 11/26/19 01:15 11/26/19 01:19 Normal Saline IV 999 mls/hr ASDIRECTED DICK Administration Sodium Chloride 10 ml 11/26/19 01:08 Saline Flush FLUSH ASDIRECTED PRN Keep Vein Open Discontinued Medications Generic Name Dose Route Start Last Admin Trade Name Frerosanne PRN Reason Stop Dose Admin Al Hydroxide/Mg Hydroxide 15 0 ml 11/26/19 00:06 11/26/19 00:13 ml/ Lidocaine HCl 15 ml PO 11/26/19 00:07 30 ml ONETIME ONE Administration Al Hydroxide/Mg Hydroxide 15 0 ml 11/26/19 00:29 11/26/19 00:43 ml/ Lidocaine HCl 15 ml PO 11/26/19 00:30 30 ml ONETIME ONE Administration Iopamidol 100 ml 11/26/19 01:29 11/26/19 01:36 Isovue-370 (76%) IV 11/26/19 01:30 100 ml . DIRECTED ONE Administration Morphine Sulfate 4 mg 11/26/19 01:12 11/26/19 01:24 Morphine IVPUSH 11/26/19 01:13 4 mg ONETIME ONE Administration Departure - Departure Time of Disposition: 12:30 Disposition: Home, Self-Care 01 Condition: Good Clinical Impression: GERD (gastroesophageal reflux disease), RUQ pain, Pancreatitis - Discharge Information Prescriptions: Acetaminophen/HYDROcodone [Zahl 325-5 MG] 1 tab PO Q4H PRN #10 tab PRN Reason: Pain Instructions: Acetaminophen; Hydrocodone tablets or capsules, Acute Pancreatitis, [id number], Food Choices for Gastroesophageal Reflux Disease, Adult, Gastroesophageal Reflux Disease, Adult, [id number], Morphine injection solution Referrals: Adrien Pelletier MD [Primary Care Provider] - Forms: ED Department Discharge Additional Instructions: Please read discharge instructions on GERD and Pancreatitis Avoid spicy and greasy foods Zahl 5/325, take 1 tablet every 4 hours as needed for pain We will call you for your abdominal ultrasound appointment today. Follow up with your clinic this coming week Sepsis Event Note (ED) - Evaluation Sepsis Screening Result: No Definite Risk - Focused Exam Vital Signs: Vital Signs Temp Pulse Resp BP Pulse Ox 11/25/19 23:40 36.9 C 69 18 113/78 99 - My Orders Last 24 Hours: My Active Orders 11/26/19 01:08 Abdomen Pelvis w Cont [CT] Stat Sodium Chloride 0.9% [Saline Flush] 10 ml FLUSH ASDIRECTED PRN Saline Lock Insert [OM.PC] Routine 11/26/19 01:15 Sodium Chloride 0.9% [Normal Saline] 1,000 ml IV ASDIRECTED - Assessment/Plan Last 24 Hours: My Active Orders 11/26/19 01:08 Abdomen Pelvis w Cont [CT] Stat Sodium Chloride 0.9% [Saline Flush] 10 ml FLUSH ASDIRECTED PRN Saline Lock Insert [OM.PC] Routine 11/26/19 01:15 Sodium Chloride 0.9% [Normal Saline] 1,000 ml IV ASDIRECTED
[2019-11-26] MEDS ORDERED: Sodium Chloride 0.9% 10 ML Syringe FLUSH PRN (01:08)
[2019-11-26] MEDS ORDERED: Sodium Chloride 0.9% 1,000 ML IV SCH (01:15)
[2019-11-26] MEDS ORDERED: Iopamidol 755 Mg/ML 100 ML Bottle IV ONE (01:29)
[2019-11-26 03:51] VITALS: BP 109/70; PULSE 51
== END 2019-11-26 02:31 | disposition home or self-care (01) ==
LOC: FB.ED 23:39
DX: K85.90 Acute pancreatitis without necrosis or infection, unspecified (principal); K21.9 Gastro-esophageal reflux disease without esophagitis; E66.9 Obesity, unspecified; Z68.27 Body mass index [BMI] 27.0-27.9, adult
CPT/HCPCS: 36415; 74177; 80053; 82150; 83690; 85025; 96374; 99284; A9270; J2270; J7030; Q9967; 93005